=== PATIENT | female | born 1995 | race Caucasian/White ===

== ENCOUNTER 2017-04-17 05:45 | Inpatient (IN) | payer BC ==
[~2017-04-17] VITALS: Ht 157.5 cm; Wt 91.8 kg
[2017-04-17] MEDS ORDERED: OXYTOCIN 30U/ 0.9% NaCL 500ML 500 ML IV ONE (06:02)
[2017-04-17] MEDS ORDERED: NEWBORN KIT ONE (06:07)
[2017-04-17] MEDS ORDERED: OXYTOCIN 30U/ 0.9% NaCL 500ML 500 ML ONE ×2 (06:07→23:10)
[2017-04-17] MEDS ORDERED: MISOPROSTOL 200 MCG TABLET ONE (06:07)
[2017-04-17] MEDS ORDERED: LIDOCAINE 1%, 20ML ONE (06:07)
[2017-04-17 06:08] VITALS: BP 118/72
[2017-04-17] MEDS ORDERED: FENTANYL PF 100 MCG/2ML IVPush PRN (06:30)
[2017-04-17] MEDS ORDERED: FENTANYL PF 100 MCG/2ML IV PRN (06:30)
[2017-04-17] MEDS ORDERED: METOCLOPRAMIDE 5 MG/ML, 2ML IVPush PRN (06:30)
[2017-04-17] MEDS ORDERED: ONDANSETRON 2MG/ML, 2ML IVPush PRN (06:30)
[2017-04-17] MEDS ORDERED: TERBUTALINE 1 MG/ML, 1ML SQ PRN (06:30)
[2017-04-17] MEDS ORDERED: SODIUM CITRATE/CITRIC ACID 30 ML UDC PO PRN (06:30)
[2017-04-17 06:36] LABS: BASOPHILS # (AUTO) 0.06 x10^3/uL (0-0.1); BASOPHILS % (AUTO) 0 % (0-1); EOSINOPHILS # (AUTO) 0.02 x10^3/uL (0-0.4); EOSINOPHILS % (AUTO) 0 % (1-7); LYMPHOCYTES # (AUTO) 2.01 x10^3/uL (1-3.4); LYMPHOCYTES % (AUTO) 12 % (22-44); MD NO; MEAN CORPUSCULAR HEMOGLOBIN 29.8 pg (27.0-34.8); MEAN CORPUSCULAR HGB CONC 33.7 g/dL (32.4-35.8); MEAN CORPUSCULAR VOLUME 88.3 fL (80-100); MEAN PLATELET VOLUME 11.3 fL (7.4-10.4); MONOCYTES # (AUTO) 0.72 x10^3/uL (0.2-0.8); MONOCYTES % (AUTO) 4 % (2-9); NEUTROPHILS # (AUTO) 13.67 x10^3/uL (1.8-6.8); NEUTROPHILS % (AUTO) 83 % (42-75); PLATELET COUNT 160 x10^3/uL (130-400); RED BLOOD COUNT 4.59 x10^6/uL (3.82-5.3); RED CELL DISTRIBUTION WIDTH 13.9 % (9.6-15.2)
[2017-04-17 11:52] LABS: ALANINE AMINOTRANSFERASE 55 U/L (12-78); ALBUMIN 2.9 g/dL (3.4-5.0); ANION GAP 11 mmol/L (5-15); BILIRUBIN, DIRECT 0.3 mg/dL (0.1-0.2); CHLORIDE 105 mmol/L (98-107); CREATININE 0.84 mg/dL (0.55-1.02)
[2017-04-17 11:55] LABS: ALKALINE PHOSPHATASE 317 U/L (45-117); BILIRUBIN,TOTAL 0.8 mg/dL (0.2-1.0); TOTAL PROTEIN 7.3 g/dL (6.4-8.2)
[2017-04-17 13:02] LABS: MICROSCOPIC INDICATED
[2017-04-17] MEDS: D5%-LACTATED RINGERS 1,000 ML IV SCH ×3 (14:02→22:02)
[2017-04-17] MEDS: LACTATED RINGERS 1,000 ML IV SCH ×3 (14:02→22:02)
[2017-04-17 14:12] LABS: CREATININE,URINE RANDOM 33.4 mg/dL
[2017-04-17] MEDS ORDERED: FENTANYL PF 100 MCG/2ML ONE (14:57)
[2017-04-17] MEDS ORDERED: ONDANSETRON 2MG/ML, 2ML ONE (16:34)
[2017-04-17] MEDS ORDERED: FENTANYL/BUPIV./NS/PF 250 ML EPIDCONT SCH (16:38)
[2017-04-17] MEDS ORDERED: LACTATED RINGERS 1,000 ML IV SCH (16:38)
[2017-04-17] MEDS ORDERED: BUPIVACAINE/PF 0.25% ONE (16:42)
[2017-04-17] MEDS ORDERED: FENTANYL/BUPIV./NS/PF 250 ML EPIDCONT ONE (16:42)
[2017-04-17] MEDS ORDERED: EPHEDRINE 50 MG/ML, 1ML IVPush PRN (17:00)
[2017-04-17] MEDS ORDERED: LACTATED RINGERS 1,000 ML IVBOLUS PRN (17:00)
[2017-04-17] MEDS ORDERED: NALOXONE 0.4 MG/ML, 1ML IVPush PRN (17:00)
[2017-04-17] MEDS ORDERED: IBUPROFEN 600 MG TABLET ONE (22:47)
[2017-04-17] MEDS: IBUPROFEN 600 MG TABLET PO PRN (22:52)
[2017-04-17] MEDS ORDERED: MISOPROSTOL 200 MCG TABLET PR PRN (23:00)
[2017-04-17] MEDS ORDERED: OXYcodone/APAP 5/325MG TABLET PO PRN (23:00)
[2017-04-17] MEDS: OXYTOCIN 30U/ 0.9% NaCL 500ML 500 ML IV SCH (23:14)
[2017-04-18 00:45] VITALS: BP 123/65
[2017-04-18 03:15] VITALS: BP 118/75
[2017-04-18] MEDS: IBUPROFEN 600 MG TABLET PO PRN ×3 (05:53→19:47)
[2017-04-18 07:19] LABS: MEAN CORPUSCULAR HEMOGLOBIN 29.9 pg (27.0-34.8); MEAN CORPUSCULAR HGB CONC 33.8 g/dL (32.4-35.8); MEAN CORPUSCULAR VOLUME 88.4 fL (80-100); MEAN PLATELET VOLUME 10.7 fL (7.4-10.4); PLATELET COUNT 156 x10^3/uL (130-400); RED BLOOD COUNT 3.78 x10^6/uL (3.82-5.3); RED CELL DISTRIBUTION WIDTH 14.3 % (9.6-15.2)
[2017-04-18 07:20] VITALS: BP 124/81
[2017-04-18 07:45] LABS: BASOPHILS # (AUTO) 0.03 x10^3/uL (0-0.1); BASOPHILS % (AUTO) 0 % (0-1); EOSINOPHILS % (AUTO) 0 % (1-7); LYMPHOCYTES # (AUTO) 1.77 x10^3/uL (1-3.4); LYMPHOCYTES % (AUTO) 8 % (22-44); MD SCAN; MONOCYTES # (AUTO) 1.22 x10^3/uL (0.2-0.8); MONOCYTES % (AUTO) 5 % (2-9); NEUTROPHILS # (AUTO) 19.78 x10^3/uL (1.8-6.8); NEUTROPHILS % (AUTO) 87 % (42-75)
[2017-04-18] MEDS: OXYTOCIN 30U/ 0.9% NaCL 500ML 500 ML IV SCH ×2 (08:44→19:25)
[2017-04-18] MEDS: PRENATAL VIT/IRON/FA 1 EACH TABLET PO SCH (08:53)
[2017-04-18 12:00] VITALS: BP 124/87
[2017-04-18 16:00] VITALS: BP 120/78
[2017-04-18 19:25] VITALS: BP 109/72
[2017-04-18] MEDS: DOCUSATE 100 MG CAPSULE PO PRN (19:46)
[2017-04-19] MEDS ORDERED: IBUP-1222 PO (01:21)
[2017-04-19] MEDS: IBUPROFEN 600 MG TABLET PO PRN (02:20)
[2017-04-19] MEDS: OXYTOCIN 30U/ 0.9% NaCL 500ML 500 ML IV SCH (04:44)
[2017-04-19 06:16] LABS: ALANINE AMINOTRANSFERASE 59 U/L (12-78)
[2017-04-19] MEDS: PRENATAL VIT/IRON/FA 1 EACH TABLET PO SCH (07:47)
[2017-04-19] MEDS: DOCUSATE 100 MG CAPSULE PO PRN (07:47)
[2017-04-19 08:00] VITALS: BP 115/57
== END 2017-04-19 11:05 | disposition home or self-care (01) | DRG 775 ==
LOC: LDOP 05:45 → LDIP 06:08 → 2NW 04-18 00:41
PROVIDERS: ADMIT Obstetrics & Gynecology; ATTEND Obstetrics & Gynecology
PROC: 10E0XZZ Delivery of Products of Conception, External Approach (ICD-10-PCS; principal; 2017-04-17)
PROC: 0KQM0ZZ Repair Perineum Muscle, Open Approach (ICD-10-PCS; 2017-04-17)
PROC: 10907ZC Drainage of Amniotic Fluid, Therapeutic from Products of Conception, Via Natural or Artificial Opening (ICD-10-PCS; 2017-04-17)
PROC: 3E0R3BZ Introduction of Anesthetic Agent into Spinal Canal, Percutaneous Approach (ICD-10-PCS; 2017-04-17)
PROC: 00HU33Z Insertion of Infusion Device into Spinal Canal, Percutaneous Approach (ICD-10-PCS; 2017-04-17)
DX: O77.0 Labor and delivery complicated by meconium in amniotic fluid (principal); O70.1 Second degree perineal laceration during delivery; Z37.0 Single live birth; Z3A.39 39 weeks gestation of pregnancy; Z90.49 Acquired absence of other specified parts of digestive tract
CPT/HCPCS: 36415; 80053; 81001; 82248; 82570; 83615; 84156; 84450; 84460; 84550; 85025; 86850; 86900; J2405; J3010; J3490; J2590; J7120; J7121

== ENCOUNTER 2019-07-30 00:28 | Inpatient (IN) | payer BC ==
[~2019-07-30] VITALS: Ht 157.5 cm; Wt 97.7 kg
[~2019-07-30 00:28] MED LIST: IBUP-1222 PO
[2019-07-30] MEDS ORDERED: OXYTOCIN 30U/ 0.9% NaCL 500ML 500 ML IV PRN (07:56)
[2019-07-30] MEDS ORDERED: D5%-LACTATED RINGERS 1,000 ML IV SCH (07:56)
[2019-07-30] MEDS ORDERED: OXYTOCIN 30U/ 0.9% NaCL 500ML 500 ML IV ONE (07:56)
[2019-07-30] MEDS ORDERED: TERBUTALINE 1 MG/ML, 1ML SQ PRN (08:00)
[2019-07-30] MEDS ORDERED: ONDANSETRON 2MG/ML, 2ML IVPush PRN (08:00)
[2019-07-30] MEDS ORDERED: CALCIUM CARBONATE 500 MG TAB.CHEW PO PRN (08:00)
[2019-07-30] MEDS ORDERED: FENTANYL PF 100 MCG/2ML IV PRN (08:00)
[2019-07-30] MEDS ORDERED: TERBUTALINE 1 MG/ML, 1ML IVPush PRN (08:00)
[2019-07-30 08:10] VITALS: BP 134/79
[2019-07-30] MEDS: LACTATED RINGERS 1,000 ML IV SCH ×3 (08:31→18:48)
[2019-07-30] MEDS ORDERED: LIDOCAINE 1%, 20ML ONE (08:32)
[2019-07-30] MEDS ORDERED: NEWBORN KIT ONE (08:32)
[2019-07-30] MEDS ORDERED: OXYTOCIN 30U/ 0.9% NaCL 500ML 500 ML ONE ×2 (08:33→18:10)
[2019-07-30] MEDS ORDERED: MISOPROSTOL 200 MCG TABLET ONE (08:33)
[2019-07-30 08:48] LABS: MEAN CORPUSCULAR HEMOGLOBIN 29.3 pg (27.0-34.8); MEAN CORPUSCULAR HGB CONC 33.5 g/dL (32.4-35.8); MEAN CORPUSCULAR VOLUME 87.4 fL (80-100); MEAN PLATELET VOLUME 11.1 fL (7.4-10.4); PLATELET COUNT 165 x10^3/uL (130-400); RED BLOOD COUNT 4.59 x10^6/uL (3.82-5.3); RED CELL DISTRIBUTION WIDTH 15.2 % (9.6-15.2)
[2019-07-30 09:47] LABS: BASOPHILS # (AUTO) 0.03 x10^3/uL (0-0.1); BASOPHILS % (AUTO) 0 % (0-1); EOSINOPHILS # (AUTO) 0.01 x10^3/uL (0-0.4); EOSINOPHILS % (AUTO) 0 % (1-7); LYMPHOCYTES # (AUTO) 1.77 x10^3/uL (1-3.4); LYMPHOCYTES % (AUTO) 18 % (22-44); MD SCAN; MONOCYTES # (AUTO) 0.34 x10^3/uL (0.2-0.8); MONOCYTES % (AUTO) 4 % (2-9); NEUTROPHILS # (AUTO) 7.82 x10^3/uL (1.8-6.8); NEUTROPHILS % (AUTO) 78 % (42-75)
[2019-07-30] MEDS ORDERED: FENTANYL PF 100 MCG/2ML ONE ×2 (15:58→17:00)
[2019-07-30] MEDS: FENTANYL PF 100 MCG/2ML IVPush PRN ×2 (16:00→17:15)
[2019-07-30] MEDS ORDERED: IBUPROFEN 600 MG TABLET ONE (18:09)
[2019-07-30] MEDS: OXYcodone/APAP 5/325MG TABLET PO PRN (18:10)
[2019-07-30] MEDS ORDERED: OXYcodone/APAP 5/325MG TABLET ONE (18:10)
[2019-07-30] MEDS: IBUPROFEN 600 MG TABLET PO PRN (18:10)
[2019-07-30] MEDS ORDERED: MISOPROSTOL 200 MCG TABLET PR PRN (18:30)
[2019-07-30] MEDS ORDERED: OXYcodone/APAP 5/325MG TABLET PO PRN (18:30)
[2019-07-30] MEDS ORDERED: DOCUSATE 100 MG CAPSULE PO PRN (18:30)
[2019-07-30] MEDS ORDERED: SIMETHICONE 80 MG CHEW TAB PO PRN (18:30)
[2019-07-30] MEDS: OXYTOCIN 30U/ 0.9% NaCL 500ML 500 ML IV SCH (18:48)
[2019-07-30 19:50] VITALS: BP 120/78
[2019-07-31 00:10] VITALS: BP 119/80
[2019-07-31 01:47] LABS: MEAN CORPUSCULAR HEMOGLOBIN 29.5 pg (27.0-34.8); MEAN CORPUSCULAR HGB CONC 33.7 g/dL (32.4-35.8); MEAN CORPUSCULAR VOLUME 87.4 fL (80-100); MEAN PLATELET VOLUME 11.3 fL (7.4-10.4); PLATELET COUNT 162 x10^3/uL (130-400); RED BLOOD COUNT 4.02 x10^6/uL (3.82-5.3); RED CELL DISTRIBUTION WIDTH 14.8 % (9.6-15.2)
[2019-07-31 02:01] LABS: MD YES
[2019-07-31 02:04] LABS: <PLATELET ESTIMATE> ADEQUATE; <RBC MORPHOLOGY> NORMAL; BAND#(MANUAL) 0.36 x10^3/uL; BANDS%(MANUAL) 2 % (0-7); LARGE PLATELETS 1+; LYMPH#(MANUAL) 2.33 x10^3/uL (1-3.4); LYMPHS% (MANUAL) 13 % (22-44); MONOS#(MANUAL) 0.18 x10^3/uL (0.3-2.7); MONOS% (MANUAL) 1 % (2-9); SEG#(MANUAL) 15.04 x10^3/uL (1.8-6.8); SEGS% (MANUAL) 84 % (42-75)
[2019-07-31] MEDS: OXYcodone/APAP 5/325MG TABLET PO PRN ×2 (02:08→12:38)
[2019-07-31] MEDS: IBUPROFEN 600 MG TABLET PO PRN ×2 (02:09→12:38)
[2019-07-31 03:45] VITALS: BP 117/73
[2019-07-31] MEDS: OXYTOCIN 30U/ 0.9% NaCL 500ML 500 ML IV SCH (04:25)
[2019-07-31 07:26] VITALS: BP 119/79
[2019-07-31] MEDS ORDERED: IBUP-1222 PO (08:20)
[2019-07-31] MEDS ORDERED: PRENATAL VIT/IRON/FA 1 EACH TABLET PO SCH (09:00)
[2019-07-31 12:30] VITALS: BP 117/85
[2019-07-31 16:41] VITALS: BP 119/78
== END 2019-07-31 17:20 | disposition home or self-care (01) | DRG 807 ==
LOC: LDIP 07:47 → 2NW 19:29
PROVIDERS: ADMIT Obstetrics & Gynecology; ATTEND Obstetrics & Gynecology
PROC: 10E0XZZ Delivery of Products of Conception, External Approach (ICD-10-PCS; principal; 2019-07-30)
PROC: 0KQM0ZZ Repair Perineum Muscle, Open Approach (ICD-10-PCS; 2019-07-30)
PROC: 10907ZC Drainage of Amniotic Fluid, Therapeutic from Products of Conception, Via Natural or Artificial Opening (ICD-10-PCS; 2019-07-30)
DX: O66.0 Obstructed labor due to shoulder dystocia (principal); Z37.0 Single live birth; O70.1 Second degree perineal laceration during delivery; Z3A.39 39 weeks gestation of pregnancy; Z82.49 Family history of ischemic heart disease and other diseases of the circulatory system; Z83.3 Family history of diabetes mellitus
CPT/HCPCS: 36415; 85025; 86592; 86850; 86900; G0378; J3010; J2590; J7120